=== PATIENT | male | born 1985 | race African-American/Black ===

== ENCOUNTER 2022-03-06 16:19 | Emergency (ER) | payer OTHER, SELFPAY ==
--- NOTE | ~2022-03-06 | XR_ITS ---
EXAMINATION: XR elbow RT min 3V DATE: 03/06/2022 17:23 INDICATION: Crush injury to the right elbow post fall with injury TECHNIQUE: Anteroposterior, two oblique and lateral views of the right elbow were obtained. COMPARISON: None. FINDINGS: Alignment is normal. No fracture or joint effusion. Joint spaces are normal. Small olecranon spur. So ft tissues are unremarkable. IMPRESSION: 1. No right elbow joint effusion or acute osseous abnormality. Reviewed, dictated and finalized at location A. [employer]
--- NOTE | ~2022-03-06 | XR_ITS ---
EXAMINATION: XR wrist RT min 3V DATE: 03/06/2022 17:23 INDICATION: Post injury to the right wrist post fall with injury. TECHNIQUE: Posteroanterior, ulnar deviation, oblique, and lateral views of the right wrist were obtai meet. COMPARISON: none FINDINGS: Old healed fracture deformity at the distal diaphysis of the right second metacarpal which has healed with 25 degree palmar angulation. Additional more subtle old healed fracture deformity at the proxim al diaphysis of the fifth metacarpal with slight palmar angulation. Alignment the right hand and wris t is otherwise normal. No acute fractures. 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 S oft tissues are unremarkable. IMPRESSION: 1. No acute osseous abnormality. 2. Old healed fractures of the right second and fifth metacarpals Reviewed, dictated and finalized at location A. [employer]
--- NOTE | ~2022-03-06 | XR_ITS ---
EXAMINATION: XR shoulder RT min 2V DATE: 03/06/2022 17:24 INDICATION: Right shoulder crush injury by forklift TECHNIQUE: AP and transscapular Y views of the right shoulder were obtained. COMPARISON: None FINDINGS: Normal alignment. No fracture. Mild acromioclavicular osteoarthritis. The glenohumeral joint is not adequately performed to assess for joint space narrowing. Right lung is clear. Soft tissues are unrem arkable. IMPRESSION: No acute osseous abnormality. Reviewed, dictated and finalized at location A. [employer]
[2022-03-06 16:22] VITALS: BP 160/107; PULSE 75; RESP 14; TEMP 36.9; O2SAT 100
--- NOTE | 2022-03-06 17:29 | ED.GENADULT ---
HPI - General Adult General Chief complaint: Extremity Injury, Upper Stated complaint: R elbow injury Time Seen by Provider: 03/06/22 16:38 History of Present Illness HPI narrative: 36-year-old male presents for evaluation of right upper extremity pain. 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 Pain is felt from his right wrist up to his mid humerus He received 4 mg of morphine in route to our facility. Review of Systems Review of Systems: CONSTITUTIONAL: Denies fever, chills, or sweats. EYES: Denies visual changes, redness, or discharge. ENT: Denies rhinorrhea, congestion, sore throat, or otalgia. CARDIOVASCULAR: Denies chest pain, palpitations, or edema. RESPIRATORY: Denies cough or dyspnea. GASTROINTESTINAL: Denies abdominal pain, nausea, vomiting, or diarrhea. GENITOURINARY: Denies dysuria or hematuria. SKIN: Denies rash or itching. MUSCULOSKELETAL: Denies back pain, joint pain, or myalgia. NEUROLOGIC: Denies headache, numbness, or weakness. PSYCHIATRIC: Denies anxiety or depression. Exam Narrative: GENERAL: Well-appearing, well-nourished, and in no acute distress. HEAD: Normocephalic, atraumatic. EYES: PERRLA and EOMI. ENT: Nares clear, no rhinorrhea or epistaxis. Mucous membranes moist. NECK: Supple. CHEST: Clear to auscultation. No respiratory distress. HEART: Regular rate and rhythm. No murmur heard. Normal peripheral pulses. ABDOMEN: Soft, nontender, nondistended, normal active bowel sounds. EXTREMITIES: Normal range of motion. No edema. Tenderness to palpation both distal to and proximal to the right elbow, MVI SKIN: Warm, dry, no rash. NEURO: No focal deficits. Alert and oriented x3. PSYCH: Normal mood and affect. Course Vital Signs Vital signs: Vital Signs Temperature 98.5 F 03/06/22 16:22 Pulse Rate 75 03/06/22 16:22 Respiratory Rate 14 03/06/22 16:22 Blood Pressure 160/107 H 03/06/22 16:22 Pulse Oximetry 100 03/06/22 16:22 Temperature 98.5 F 03/06/22 16:22 Pulse Rate 75 03/06/22 16:22 Respiratory Rate 14 03/06/22 16:22 Blood Pressure 160/107 H 03/06/22 16:22 Pulse Oximetry 100 03/06/22 16:22 Medical Decision Making MDM Narrative Medical decision making narrative: X-rays of right wrist, elbow, shoulder are unremarkable with no bony abnormalities. There is a small laceration on the medial side of right elbow which was copiously irrigated and closure with a single staple. Antibiotics and ibuprofen sent to pharmacy for home use. Return precautions given as well as a primary care follow-up doctor. Vital Signs Vital Signs: Vital Signs Temperature 98.5 F 03/06/22 16:22 Pulse Rate 75 03/06/22 16:22 Respiratory Rate 14 03/06/22 16:22 Blood Pressure 160/107 H 03/06/22 16:22 Pulse Oximetry 100 03/06/22 16:22 Temperature 98.5 F 03/06/22 16:22 Pulse Rate 75 03/06/22 16:22 Respiratory Rate 14 03/06/22 16:22 Blood Pressure 160/107 H 03/06/22 16:22 Pulse Oximetry 100 03/06/22 16:22 Discharge Plan Discharge Clinical Impression: Laceration, Contusion Patient Disposition: Home, Self-Care Condition: Stable Instructions: Antibiotic Form, Laceration (ED) Additional Instructions: Please take all medications as directed. Prescriptions: New ibuprofen 800 mg tablet 800 mg PO TID Qty: 20 0RF cephalexin 500 mg capsule 500 mg PO Q8H 7 Days Qty: 21 0RF Follow-up/Referrals: PHYSICIAN NOT ON STAFF,NONSTAFF [Non-Staff] - Stand Alone Forms: Work/School Release IP
[2022-03-06] MEDS: TETANUS,DIPHTHERIA,AC PERTUSSIS ADULT (0.5 ML) BOOSTRIX IM (19:22)
--- NOTE | 2022-03-06 19:32 | PC.NURSE ---
Upon assuming care of this pt this RN did not initiate IV but charted IV was placed prior to arrival by EMS. This RN d/c IV access upon discharge and documented. Pt provided arm sling per request to stabilize elbow joint.
== END 2022-03-06 19:25 | disposition home or self-care (01) ==
PROVIDERS: Emergency Provider Emergency Medicine
DX: S51.011A Laceration without foreign body of right elbow, initial encounter (principal); W23.0XXA Caught, crushed, jammed, or pinched between moving objects, initial encounter; Z23 Encounter for immunization
CPT/HCPCS: 12001; 73030; 73080; 73110; 90471; 90715; 99284; A4565